=== PATIENT | male | born 1990 | race African-American/Black ===

== ENCOUNTER → 2022-05-07 | Day surgery (SDC) | payer OTHER ==
[~2022-05-07] MED LIST: BUPIVACAINE HCL 0.25% 10ML MPF VIAL INJ ONE; DEXAMETHASONE SOD PHOS INJ 4 MG/ML SDV ONE; FENTANYL CITRATE/PF 100MCG/2 ML INJ ONE; HYDROCODONE/APAP 5MG-325MG TAB ONE; LIDOCAINE HCL 2% LOCAL INJ 5 ML SDV VIAL INJ ONE; MIDAZOLAM HCL 2 MG/2 ML VIAL ONE; ONDANSETRON HCL INJ 2MG/ML 2ML 2 MG/ML VIAL ONE; POVIDONE IODINE 0.05% 0.05 % ML PO ONE; PROPOFOL IV EMULSION 10 MG/ML 20 ML VIAL ONE; SEVOFLURANE INHAL SOLN 250 ML PEN BTL ONE; VITAMIN C1000 MG PO
[2022-05-07 08:45] VITALS: BP 138/88
== END | disposition home or self-care (01) ==
LOC: OR 05:58
PROVIDERS: ATTEND Podiatrist Foot & Ankle Surgery
DX: G57.51 Tarsal tunnel syndrome, right lower limb (principal); Z72.0 Tobacco use
CPT/HCPCS: 28035; J0690; J1100; J2001; J2250; J2405; J2704; J3010